=== PATIENT | female | born 1945 | race Caucasian/White ===

== ENCOUNTER 2020-06-14 11:45 | Emergency (ER) | payer OTHER, SELFPAY ==
[2020-06-14 13:06] LABS: Abs Immature Grans 0.02 10^3/uL (0.0-0.06); Absolute Basophil Count 0.01 10^3/uL (0.0-0.2); Absolute Eosinophil Count 0.06 10^3/uL (0.0-0.7); Absolute Lymphocyte Count 1.35 10^3/uL (1.2-3.4); Absolute Monocyte Count 0.43 10^3/uL (0.1-0.8); Absolute Neutrophil Count 3.43 10^3/uL (1.2-6.7); Basophils % 0.2; Eosinophils % 1.1; HCT 40.3 % (36.0-46.0); HGB 13.6 g/dL (11.2-15.7); Immature Grans % 0.4; Lymphocytes % 25.5; MCHC 33.7 % (32.0-36.0); MCV 91.8 fL (80-95); MPV 10.4 fL (8.0-11.0); Monocytes % 8.1; Neutrophils % 64.7; Nucleated RBC 0 %; Platelet Count 200 10^3/uL (130-400); RBC 4.39 10^6/uL (3.93-5.22); RDW 13.6 % (11.7-14.6); RDW-SD 46.2 fL
--- NOTE | 2020-06-14 13:10 | DI.CT_ITS ---
EXAM: CT HEAD CERVICAL SPINE WO CLINICAL HISTORY: FALL 5 DAYS AGO, LANDA, ON ELIQUIS. TECHNIQUE: Imaging Protocol: Axial computed tomography images with coronal and sagittal reformatted images were created and reviewed COMPARISON: No exams were available for comparison FINDINGS: CT Head: Ventricles and Extra axial spaces: Normal in size and morphology for the patient's age. Hemorrhage: None. Cerebral parenchyma: There are areas of decreased attenuation in the white matter most consistent wit h chronic microvascular ischemic change. No acute territorial infarct is present. Midline shift: None. Brainstem/Cerebellum: Normal. Calvarium: Normal. Visualized Paranasal sinuses/Mastoids: Clear. Soft Tissues: Unremarkable. CT Cervical Spine: Bones: No acute fracture or subluxation. Degenerative changes are seen throughout the cervical spine. Soft Tissues: Unremarkable. Lung Apices: Clear. IMPRESSION: 1. No acute intracranial process. 2. No acute fracture or subluxation in the cervical spine. 3. Results of this exam have been verbally communicated with provider. RADIATION DOSE DELIVERED: 1,602.64mGy.cm Total DLP DATA REPOSITORY: All CT scans at this facility are submitted to the National Radiology Data Registry (NRDR) Dose Index Registry (DIR) with the [employer] (ACR). RADIATION OPTIMIZATION: All CT scans at this facility use at least one of these dose optimization te chniques: automated exposure control; mA and/or kV adjustment per patient size (includes targeted exa ms where dose is matched to clinical indication); or iterative reconstruction.
[2020-06-14 13:21] LABS: Prothrombin Time 10.3 sec (9.3-11.0)
[2020-06-14 13:22] LABS: ALT 26 U/L (14-59); AST 17 U/L (15-37); Albumin 3.8 g/dL (3.4-5.0); Alkaline Phosphatase 73 U/L (46-116); Anion Gap 9.4 mmol/L (3-11); BUN 29 mg/dL (7-18); Bilirubin, Total 0.6 mg/dL (0.2-1.0); CO2 27.6 mmol/L (21.0-32.0); CREATININE 0.9 mg/dL (0.55-1.02); Calcium 9.1 mg/dL (8.5-10.1); Chloride 105 mmol/L (98-107); Glucose 104 mg/dL (74-106); Potassium 3.3 mmol/L (3.5-5.1); Sodium 142 mmol/L (136-145); Total Protein 6.6 g/dL (6.4-8.2)
[2020-06-14 13:34] LABS: Calculated LDL 132 mg/dL (<100); Cholesterol 231 mg/dL (<200); HDL Cholesterol 74 mg/dL (40-60); Triglyceride 127 mg/dL (<150)
--- NOTE | 2020-06-14 14:25 | W.ED.GENAD ---
Discharge Plan Disposition Patient Disposition: HOME Condition: Stable Discharge Details Clinical Impression: Hypokalemia, Headache, Fall due to ice or snow, Right hand paresthesia Primary Care Provider: Irena Salas ED Provider: Jose Suarez Home Meds and New Rx's Prescriptions: No Action valsartan-hydrochlorothiazide 320-12.5 mg tablet 1 tab PO DAILY RF: 0 ezetimibe 10 mg tablet 10 mg PO DAILY RF: 0 cinnamon bark 500 mg capsule 500 mg PO DAILY RF: 0 Actemra 162 mg/0.9 mL syringe 162 mg subcut QWEEK RF: 0 verapamil 240 mg capsule,ext rel. pellets 24 hr 240 mg PO DAILY RF: 0 Alphagan P 0.1 % drops 1 drp ophthalmic (eye) BID RF: 0 acetaminophen [Tylenol Arthritis Pain] 650 mg tablet extended release 650 mg PO Q12H RF: 0 sertraline 100 mg tablet 200 mg PO DAILY RF: 0 Eliquis 5 mg tablet 5 mg PO BID RF: 0 Discharge Instructions Instructions: Hypokalemia (ED), Paresthesia (ED), Fall Prevention (ED), General Headache (ED) Additional Instructions: A medication reconciliation was not performed today as system was malfunctioning. Please be sure to take your medications as prescribed. Please drink plenty of fluids to stay hydrated. Eat a couple bananas a day for the next few days. Please contact your primary care physician to arrange follow-up. Please follow-up with your specialist at [facility]. Call your doctors today to arrange timely follow-up. Return to the ER for any worsening or new concerning symptoms. Referrals: Irena Salas NP [Primary Care Provider] - Discharge Data Discharge Date/Time-TO BE ENTERED AT DEPARTURE: 06/14/20 14:55 Medical Decision Making Please refer to downtime paper document. HPI General Mode of arrival: ambulatory. Date/Time Provider Initiated Documentation: 06/14/20 14:15. Limitations to Documentation: no limitations. Information obtained by: patient. HPI Narrative: Please refer to downtime paper document. Related Data Home Medications Medication Instructions Recorded Confirmed acetaminophen 650 mg 650 mg PO Q12H 05/19/20 05/19/20 tablet,extended release apixaban 5 mg tablet 5 mg PO BID 05/19/20 05/19/20 brimonidine 0.1 % eye drops 1 drp OPHTHALMIC (EYE) BID ml 05/19/20 05/19/20 cinnamon bark 500 mg capsule 500 mg PO DAILY 05/19/20 05/19/20 ezetimibe 10 mg tablet 10 mg PO DAILY 05/19/20 05/19/20 sertraline 100 mg tablet 200 mg PO DAILY tab 05/19/20 05/19/20 tocilizumab 162 mg/0.9 mL 162 mg SUBCUT QWEEK 05/19/20 05/19/20 subcutaneous syringe valsartan 320 1 tab PO DAILY 05/19/20 05/19/20 mg-hydrochlorothiazide 12.5 mg tablet verapamil 240 mg 24 hr 240 mg PO DAILY 05/19/20 05/19/20 capsule,extended release Allergies Allergy/AdvReac Type Severity Reaction Status Date / Time adhesive tape Allergy Unknown Unverified 05/19/20 12:51 atorvastatin Allergy Unknown Unverified 05/19/20 12:51 colestipol [From Colestid] Allergy Unknown Unverified 05/19/20 12:51 diphenhydramine Allergy Unknown Unverified 05/19/20 12:51 [From Benadryl] paroxetine [From Paxil] Allergy Unknown Unverified 05/19/20 12:51 [facility] Medical History (Updated 06/16/20 @ 12:01 by Irena Salas NP) Deep vein thrombosis (DVT) of popliteal vein of right lower extremity (~12/2019) Duodenal ulcer Endometrial carcinoma Essential hypertension Generalized anxiety disorder Hiatal hernia Hyperlipidemia Major depressive disorder Obesity Obstructive sleep apnea Osteoarthritis Periodic limb movement disorder Prediabetes Pulmonary embolism (~12/2019) Temporal arteritis (~2018) Type 2 diabetes mellitus Surgical History History of colonoscopy (01/05/16) History of esophagogastroduodenoscopy (EGD) (02/18/19) History of hysterectomy (~04/08/94) History of left hip replacement (~2005) History of right hip replacement (~2003) Family History Mother , 87 Breast cancer Diabetes Heart disease Hypertension Father Depression Sister Heart disease Hypertension Sister , 20 Depression Brother , 30 Alcohol abuse Maternal Grandfather Stomach cancer Maternal Grandmother No problems noted. Paternal Grandfather No problems noted. Paternal Grandmother No problems noted. Social History Smoking/Tobacco Use Status: Former Tobacco Use tobacco type: cigarettes Second Hand Exposure: No Smoking risk assessment performed?: Yes Alcohol Intake: former Drug use: Daily Substance use type: marijuana and prescription drug Caregiver/Support person: No Household members: none Housing: apartment Communication Needs: Corrective Lenses Do you need help understanding health information?: Rarely Pets and animals: No Sexually active: No Do you think of yourself as: straight/heterosexual Current gender identity: female What is your relationship status?: How often do you talk on the phone with friends or family?: three or more times per week How often do you get together with friends or relatives?: once per week How often do you attend methodist or taoism services?: 1-3 times per year Do you belong to any clubs or organized social groups?: no Panel score (0-1 are the most socially isolated patients): 1 Lisa/Temple: Restorationism Seatbelt use: always Helmet use: No Drive intox or ride w/intox recycler forklift driver truck driver: No In current or past relationships, have you been: hurt, threatened and made to feel afraid Do you feel safe in your relationship?: Yes Victim of physical abuse: No Victim of emotional abuse: Yes Victim of sexual abuse: No Would you like helpful sources: No Course Lab/Test Results Lab/Test Results: Laboratory Tests Range/Units 06/14/20 06/14/20 06/14/20 12:37 12:37 12:37 WBC (4.4-10.8) 10^3/uL 5.30 RBC (3.93-5.22) 10^6/uL 4.39 Hgb (11.2-15.7) g/dL 13.6 Hct (36.0-46.0) % 40.3 MCV (80-95) fL 91.8 MCH (27.0-33.0) pg 31.0 MCHC (32.0-36.0) % 33.7 RDW (11.7-14.6) % 13.6 Plt Count (130-400) 10^3/uL 200 MPV (8.0-11.0) fL 10.4 Immature Gran % 0.4 Neutrophils % 64.7 Lymphocytes % 25.5 Monocytes % 8.1 Eosinophils % 1.1 Basophils % 0.2 Nucleated RBC % % 0 Absolute Neutrophils (1.2-6.7) 10^3/uL 3.43 Absolute Lymphocytes (1.2-3.4) 10^3/uL 1.35 Absolute Monocytes (0.1-0.8) 10^3/uL 0.43 Absolute Eosinophils (0.0-0.7) 10^3/uL 0.06 Absolute Basophils (0.0-0.2) 10^3/uL 0.01 PT (9.3-11.0) sec 10.3 INR (0.9-1.1) 1.0 Sodium Cancelled Potassium Cancelled Chloride Cancelled Carbon Dioxide Cancelled Anion Gap Cancelled BUN Cancelled Creatinine Cancelled Estimated GFR/1.73 m2 Cancelled Glucose Cancelled Hemoglobin A1c (<5.7) % Calcium Cancelled Total Bilirubin (0.2-1.0) mg/dL AST (15-37) U/L ALT (14-59) U/L Alkaline Phosphatase (46-116) U/L Total Protein (6.4-8.2) g/dL Albumin (3.4-5.0) g/dL Triglycerides (<150) mg/dL Total Cholesterol (<200) mg/dL LDL Cholesterol, Calc (<100) mg/dL HDL Cholesterol (40-60) mg/dL Patient ABO/Rh Antibody Screen Range/Units 06/14/20 06/14/20 06/14/20 12:37 12:37 12:37 WBC (4.4-10.8) 10^3/uL RBC (3.93-5.22) 10^6/uL Hgb (11.2-15.7) g/dL Hct (36.0-46.0) % MCV (80-95) fL MCH (27.0-33.0) pg MCHC (32.0-36.0) % RDW (11.7-14.6) % Plt Count (130-400) 10^3/uL MPV (8.0-11.0) fL Immature Gran % Neutrophils % Lymphocytes % Monocytes % Eosinophils % Basophils % Nucleated RBC % % Absolute Neutrophils (1.2-6.7) 10^3/uL Absolute Lymphocytes (1.2-3.4) 10^3/uL Absolute Monocytes (0.1-0.8) 10^3/uL Absolute Eosinophils (0.0-0.7) 10^3/uL Absolute Basophils (0.0-0.2) 10^3/uL PT (9.3-11.0) sec INR (0.9-1.1) Sodium Potassium Chloride Carbon Dioxide Anion Gap BUN Creatinine Estimated GFR/1.73 m2 Glucose Hemoglobin A1c (<5.7) % 6.0 H Calcium Total Bilirubin (0.2-1.0) mg/dL AST (15-37) U/L ALT (14-59) U/L Alkaline Phosphatase (46-116) U/L Total Protein (6.4-8.2) g/dL Albumin (3.4-5.0) g/dL Triglycerides (<150) mg/dL 127 Total Cholesterol (<200) mg/dL 231 H LDL Cholesterol, Calc (<100) mg/dL 132 H HDL Cholesterol (40-60) mg/dL 74 Patient ABO/Rh A Positive Antibody Screen Negative Range/Units 06/14/20 12:37 WBC (4.4-10.8) 10^3/uL RBC (3.93-5.22) 10^6/uL Hgb (11.2-15.7) g/dL Hct (36.0-46.0) % MCV (80-95) fL MCH (27.0-33.0) pg MCHC (32.0-36.0) % RDW (11.7-14.6) % Plt Count (130-400) 10^3/uL MPV (8.0-11.0) fL Immature Gran % Neutrophils % Lymphocytes % Monocytes % Eosinophils % Basophils % Nucleated RBC % % Absolute Neutrophils (1.2-6.7) 10^3/uL Absolute Lymphocytes (1.2-3.4) 10^3/uL Absolute Monocytes (0.1-0.8) 10^3/uL Absolute Eosinophils (0.0-0.7) 10^3/uL Absolute Basophils (0.0-0.2) 10^3/uL PT (9.3-11.0) sec INR (0.9-1.1) Sodium 142 Potassium 3.3 L Chloride 105 Carbon Dioxide 27.6 Anion Gap 9.4 BUN 29 H Creatinine 0.9 Estimated GFR/1.73 m2 >= 60.00 Glucose 104 Hemoglobin A1c (<5.7) % Calcium 9.1 Total Bilirubin (0.2-1.0) mg/dL 0.6 AST (15-37) U/L 17 ALT (14-59) U/L 26 Alkaline Phosphatase (46-116) U/L 73 Total Protein (6.4-8.2) g/dL 6.6 Albumin (3.4-5.0) g/dL 3.8 Triglycerides (<150) mg/dL Total Cholesterol (<200) mg/dL LDL Cholesterol, Calc (<100) mg/dL HDL Cholesterol (40-60) mg/dL Patient ABO/Rh Antibody Screen
[2020-06-14] MEDS: Acetaminophen 500 MG TAB 1000 MG PO (14:51)
== END 2020-06-14 14:55 | disposition home or self-care (01) ==
PROVIDERS: Emergency Provider Student in an Organized Health Care Education/Training Program; PCP Nurse Practitioner Family
DX: E87.6 Hypokalemia (principal); R51.9 Headache, unspecified; R20.2 Paresthesia of skin; W00.0XXA Fall on same level due to ice and snow, initial encounter; Z79.01 Long term (current) use of anticoagulants
CPT/HCPCS: 36415; 80048; 80053; 80061; 86850; 86900; 86901; 99284; 70450; 72125; 83036; 85025; 85610

== ENCOUNTER 2020-08-03 11:39 | Emergency (ER) | payer OTHER, SELFPAY ==
[2020-08-03 11:40] VITALS: BP 118/69; PULSE 74; RESP 16; TEMP 36.8; O2SAT 95
--- NOTE | 2020-08-03 11:45 | DI.US_ITS ---
EXAM: US LOWER EXTREMITY VENOUS RT CLINICAL HISTORY: Thigh numbness, calf pain, R/O DVT TECHNIQUE: Grayscale, color, and doppler imaging of the deep venous system of the right lower extrem ity was performed. COMPARISON: US outside institution US EXTREMITY LOWER VENOUS RT from 03/28/2020 FINDINGS: There is presently no evidence of intraluminal thrombus and there is normal compression and augmentat ion demonstrated within the common femoral vein, femoral vein, and popliteal vein. In the ipsilateral calf the interrogated veins also exhibit normal compression/ augmentation properti es. The ipsilateral saphenofemoral junction is patent. There is suggestion of a Grove cyst in the medial popliteal fossa measuring 2.3 x 1.1 x 2.3 cm. IMPRESSION: 1. No evidence of DVT in the right lower extremity. 2. Grove cyst in the medial popliteal fossa noted. DATA REPOSITORY:
--- NOTE | 2020-08-03 11:50 | ED.GENADUL_ITS ---
Discharge Plan Disposition Patient Disposition: HOME Condition: Stable Discharge Details Clinical Impression: Numbness of right anterior thigh Primary Care Provider: Irena Salas ED Provider: Prabha Edmondson Home Meds and New Rx's Prescriptions: Continued Actemra 162 mg/0.9 mL syringe 162 mg subcut QWEEK RF: 0 verapamil 240 mg capsule,ext rel. pellets 24 hr 240 mg PO DAILY RF: 0 sertraline 100 mg tablet 200 mg PO DAILY RF: 0 Eliquis 5 mg tablet 5 mg PO BID RF: 0 Medical Marijuana PO RF: 0 acetaminophen 325 mg Tablet 975 mg PO TID RF: 0 bisacodyl 5 mg Suppository 5 mg CA PRN PRNRF: 0 hydromorphone 2 mg Tablet 2 mg PO Q4H RF: 0 magnesium hydroxide 400 mg/5 mL Suspension 30 ml PO PRN PRNRF: 0 valsartan 320 mg Tablet 320 mg PO DAILY RF: 0 Fleet Enema 19-7 gram/118 mL Enema 118 ml CA PRN PRNRF: 0 calcium carbonate [Calcium 500] 500 mg calcium (1,250 mg) Tablet,Chewable 500 mg PO PRN PRNRF: 0 hydrochlorothiazide 25 mg Tablet 25 mg PO DAILY RF: 0 alum-mag hydroxide-simeth 200-200-20 mg/5 mL Suspension 15 ml PO PRN PRNRF: 0 senna-docusate sodium Tablet 2 tab PO DAILY RF: 0 ezetimibe 10 mg Tablet 10 mg PO DAILY RF: 0 brimonidine 0.1 % Drops 1 drp OPHTHALMIC (EYE) DAILY RF: 0 Discharge Instructions Instructions: Grove Cyst (ED), Paresthesia (ED) Additional Instructions: Follow up with primary care provider in 3-5 days. Return to ED or be seen sooner if any worsening or concerns. Increase oral fluids. Continue with physical therapy as tolerated. At this time there is no evidence of blood clot. They did find a 2 cm Grove's cyst in the popliteal fossa this can cause some discomfort behind her knee. This is improved with rest ice compression elevation. Referrals: Irena Salas, EMILIE [Primary Care Provider] - Medical Decision Making 75-year-old female presents to the ER via EMS with chief complaint of right anterior lateral thigh heaviness and numbness which she noticed this morning after eating breakfast. She also endorses some right calf tenderness. She does have a history of a DVT in that same extremity. [facility] post left shoulder replacement surgery on July 21. She denies any chest pain or shortness of breath. She is currently taking apixaban 10 mg daily. She has a past medical history of type 2 diabetes, temporal arteritis, osteoarthritis of bilateral shoulders, hyperlipidemia hypertension, DVT. US ordered to R/O DVT. 1307: Preliminary result received from rv service technician negative for DVT there is a small Grove's cyst noted in the popliteal space. EXAM: US LOWER EXTREMITY VENOUS RT CLINICAL HISTORY: Thigh numbness, calf pain, R/O DVT TECHNIQUE: Grayscale, color, and doppler imaging of the deep venous system of the right lower extremity was performed. COMPARISON: US outside institution US EXTREMITY LOWER VENOUS RT from 03/28/2020 FINDINGS: There is presently no evidence of intraluminal thrombus and there is normal compression and augmentation demonstrated within the common femoral vein, femoral vein, and popliteal vein. In the ipsilateral calf the interrogated veins also exhibit normal compression/ augmentation properties. The ipsilateral saphenofemoral junction is patent. There is suggestion of a Grove cyst in the medial popliteal fossa measuring 2.3 x 1.1 x 2.3 cm. IMPRESSION: 1. No evidence of DVT in the right lower extremity. 2. Grove cyst in the medial popliteal fossa noted. Discussed results with patient who verbalizes understanding. Her questions were answered to the best my ability. Discussed strict return instructions. [facility] contacted regarding arrangement for transportation back to their facility. HPI General Mode of arrival: ambulatory . Date/Time Provider Initiated Documentation: 08/03/20 11:39 . Limitations to Documentation: no limitations . Information obtained by: patient and EMS . HPI Narrative: 75-year-old female presents to the ER via EMS with chief complaint of right anterior lateral thigh heaviness and numbness which she noticed this morning after eating breakfast. She also endorses some right calf tenderness. She does have a history of a DVT in that same extremity. [facility] is [facility] post left shoulder replacement surgery on July 21. She denies any chest pain or shortness of breath. She is currently taking apixaban 10 mg daily. She has a past medical history of type 2 diabetes, temporal arteritis, osteoarthritis of bilateral shoulders, hyperlipidemia hypertension, DVT. Related Data Home Medications Medication Instructions Recorded Confirmed apixaban 5 mg tablet 5 mg PO BID 05/19/20 08/03/20 sertraline 100 mg tablet 200 mg PO DAILY tab 05/19/20 08/03/20 tocilizumab 162 mg/0.9 mL 162 mg SUBCUT QWEEK 05/19/20 08/03/20 subcutaneous syringe verapamil 240 mg 24 hr 240 mg PO DAILY 05/19/20 08/03/20 capsule,extended release Medical Marijuana PO 07/19/20 07/19/20 Fleet Enema 118 ml CA PRN PRN 08/03/20 08/03/20 acetaminophen 975 mg PO TID 08/03/20 08/03/20 alum-mag hydroxide-simeth 15 ml PO PRN PRN 08/03/20 08/03/20 bisacodyl 5 mg CA PRN PRN 08/03/20 08/03/20 brimonidine 1 drp OPHTHALMIC (EYE) DAILY 08/03/20 08/03/20 calcium carbonate [Calcium 500] 500 mg PO PRN PRN 08/03/20 ezetimibe 10 mg PO DAILY 08/03/20 08/03/20 hydrochlorothiazide 25 mg PO DAILY 08/03/20 08/03/20 hydromorphone 2 mg PO Q4H 08/03/20 08/03/20 magnesium hydroxide 30 ml PO PRN PRN 08/03/20 08/03/20 senna-docusate sodium 2 tab PO DAILY 08/03/20 08/03/20 valsartan 320 mg PO DAILY 08/03/20 08/03/20 Allergies Allergy/AdvReac Type Severity Reaction Status Date / Time adhesive tape Allergy Unknown Unverified 07/15/20 15:15 atorvastatin Allergy Unknown Unverified 07/15/20 15:15 colestipol [From Colestid] Allergy Unknown Unverified 07/15/20 15:15 diphenhydramine Allergy Unknown Unverified 07/15/20 15:15 [From Benadryl] paroxetine [From Paxil] Allergy Unknown Unverified 07/15/20 15:15 General Stated Complaint: GenMedical SALINA: 3 Review of Systems All systems reviewed & are unremarkable except as noted in HPI and below Musculoskeletal Musculoskeletal: Reports numbness (Right anterior lateral) and Reports other (Right calf pain) Neurologic Neurologic: Reports numbness (Right anterior lateral) [facility] Medical History Cholelithiasis Deep vein thrombosis (DVT) of popliteal vein of right lower extremity (~12/2019) Duodenal ulcer Endometrial carcinoma Essential hypertension Generalized anxiety disorder Hiatal hernia Hyperlipidemia Major depressive disorder Obesity Obstructive sleep apnea Osteoarthritis Osteoarthritis of shoulders, bilateral Periodic limb movement disorder Prediabetes Pulmonary embolism (~12/2019) Rectal bleed Temporal arteritis (~2018) Type 2 diabetes mellitus Surgical History History of colonoscopy (01/05/16) History of esophagogastroduodenoscopy (EGD) (02/18/19) History of hysterectomy (~04/08/94) History of left hip replacement (~2005) History of right hip replacement (~2003) Family History Mother , 87 Breast cancer Diabetes Heart disease Hypertension Father Depression Sister Heart disease Hypertension Sister , 20 Depression Brother , 30 Alcohol abuse Maternal Grandfather Stomach cancer Maternal Grandmother No problems noted. Paternal Grandfather No problems noted. Paternal Grandmother No problems noted. Social History Smoking/Tobacco Use Status: Former Tobacco Use tobacco type: cigarettes Second Hand Exposure: No Smoking risk assessment performed?: Yes Alcohol Intake: former Drug use: Occasionally Substance use type: marijuana and prescription drug Caregiver/Support person: No Household members: none Housing: apartment Communication Needs: Corrective Lenses Do you need help understanding health information?: Rarely Pets and animals: No Sexually active: No Do you think of yourself as: straight/heterosexual Current gender identity: female What is your relationship status?: How often do you talk on the phone with friends or family?: three or more times per week How often do you get together with friends or relatives?: once per week How often do you attend pentecostalism or islam services?: 1-3 times per year Do you belong to any clubs or organized social groups?: no Panel score (0-1 are the most socially isolated patients): 1 Lisa/Tenriism: Anabaptism Seatbelt use: always Helmet use: No Drive intox or ride w/intox catering driver: No In current or past relationships, have you been: hurt, threatened and made to feel afraid Do you feel safe in your relationship?: Yes Victim of physical abuse: No Victim of emotional abuse: Yes Victim of sexual abuse: No Would you like helpful sources: No Exam Narrative Exam Narrative: Constitutional: Alert and oriented x3. Appears stated age. Normal body habitus. Head: Normocephalic, no trauma. Eyes: Pupils PERRLA, Red reflex noted, EOM's intact. Eyelids symmetrical without lesions, discharge, or swelling. ENT: Bilateral TM's WNL, External ear normal to inspection, no mastoid TTP, swelling, or erythema, Nasal turbinates WNL, no nasal discharge. Normal dentition, Posterior pharynx WNL, no exudate. Chest: RRR, Normal S1, S2, distal pulses intact. Resp: Lungs clear to auscultation bilaterally, no wheezes, rales, or rhonchi. Musculoskeletal: 5/5 strength to all four extremities. Does have 1+ pitting edema noted to left lower extremity. Skin: No suspicious rashes or lesions. Capillary refill less than 2 sec. Neurologic: Cranial nerves II-XII intact. Alert and oriented x 3. DTR's intact. 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 Hematologic/Lymphatic: No ecchymosis, no lymphadenopathy. Course Vital Signs Vital signs: Vital Signs Temperature 36.8 C 08/03/20 11:40 Pulse 74 08/03/20 11:40 Respiratory Rate 16 08/03/20 11:40 Blood Pressure 118/69 08/03/20 11:40 Pulse Oximetry 95 08/03/20 11:40 Temperature 36.8 C 08/03/20 11:40 Temperature Source Skin 08/03/20 11:40 Pulse 74 08/03/20 11:40 Respiratory Rate 16 08/03/20 11:40 Blood Pressure 118/69 08/03/20 11:40 Blood Pressure Position Sitting 08/03/20 11:40 Pulse Oximetry 95 08/03/20 11:40 Oxygen Delivery Method Room Air 08/03/20 11:40 Oxygen Flow Rate 0 08/03/20 11:40
[2020-08-03 13:11] VITALS: BP 120/54; PULSE 71; RESP 18; TEMP 36.7; O2SAT 94
== END 2020-08-03 13:47 | disposition home or self-care (01) ==
LOC: ER 13:35
PROVIDERS: Emergency Provider Registered Nurse Emergency; PCP Nurse Practitioner Family
DX: R20.2 Paresthesia of skin (principal); M71.21 Synovial cyst of popliteal space [Baker], right knee
CPT/HCPCS: 99284; 93971; 99283

== ENCOUNTER 2021-07-21 10:27 | Emergency (ER) | payer OTHER, SELFPAY ==
[2021-07-21 10:31] VITALS: BP 177/73; PULSE 84; RESP 16; TEMP 37; O2SAT 99
--- NOTE | 2021-07-21 10:44 | DI.CT_ITS ---
Exam(s) CT HEAD CERV SPINE FACIAL WO EXAM: CT HEAD CERV SPINE FACIAL WO CLINICAL HISTORY: Closed Head Injury, R/O CVA, On Eliquis. TECHNIQUE: Imaging Protocol: Axial computed tomography images with coronal and sagittal reformatted images were created and reviewed COMPARISON: CT CT HEAD CERVICAL SPINE WO from 06/14/2020 FINDINGS: CT Head: Ventricles and Extra axial spaces: Normal in size and morphology for the patient's age. Hemorrhage: None. Cerebral parenchyma: No evidence of an acute territorial infarct. There are areas of decreased atten uation in the white matter consistent with small vessel ischemic disease. Midline shift: None. Brainstem/Cerebellum: Normal. Calvarium: Normal. Visualized Paranasal sinuses/Mastoids: Clear. Soft Tissues: Unremarkable. CT Face: Facial Bones: No definite fracture is noted in facial bones. Sinuses and Mastoids: Unremarkable. Globes, extraocular muscles, optic nerves and retrobulbar fat: Normal. Upper aerodigestive tract: Normal. Mandible and bilateral temporomandibular joints: Normal. Soft tissues: Normal. CT Cervical Spine: Bones: No acute fracture or subluxation. Degenerative changes are seen throughout the cervical spine. Soft Tissues: Unremarkable. Lung Apices: Clear. IMPRESSION: 1. No acute intracranial process. 2. No acute fracture or subluxation in the cervical spine. 3. No acute facial fracture. 4. Results of this exam have been verbally communicated with provider. RADIATION DOSE DELIVERED: 2,384.95mGy.cm Total DLP DATA REPOSITORY: All CT scans at this facility are submitted to the National Radiology Data Registry (NRDR) Dose Index Registry (DIR) with the [employer] (ACR). RADIATION OPTIMIZATION: All CT scans at this facility use at least one of these dose optimization te chniques: automated exposure control; mA and/or kV adjustment per patient size (includes targeted exa ms where dose is matched to clinical indication); or iterative reconstruction.
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
[2021-07-21] MEDS: Acetaminophen 500 MG TAB PO (12:56)
== END 2021-07-21 12:25 | disposition home or self-care (01) ==
PROVIDERS: Emergency Provider Registered Nurse Emergency
DX: S09.8XXA Other specified injuries of head, initial encounter (principal); M54.2 Cervicalgia; R51.9 Headache, unspecified; W01.0XXA Fall on same level from slipping, tripping and stumbling without subsequent striking against object, initial encounter; Z79.01 Long term (current) use of anticoagulants
CPT/HCPCS: 80053; 99284; 70450; 70486; 72125; 85025; 85610; 99283

== ENCOUNTER → 2021-09-18 09:53 | Outpatient (BNVA) | payer OTHER, SELFPAY | PROVIDERS: PCP Family Medicine; Referring Provider Family Medicine; Visit Provider Student in an Organized Health Care Education/Training Program | DX: M17.12 Unilateral primary osteoarthritis, left knee (principal) | CPT/HCPCS: 20610; 99214; J1040 ==

== ENCOUNTER → 2022-03-16 11:08 | Outpatient (BNVA) | payer OTHER, SELFPAY | PROVIDERS: PCP Family Medicine; Referring Provider Family Medicine; Visit Provider Internal Medicine Cardiovascular Disease | DX: Z01.810 Encounter for preprocedural cardiovascular examination (principal); I10 Essential (primary) hypertension; R06.09 Other forms of dyspnea; Z79.01 Long term (current) use of anticoagulants | CPT/HCPCS: 93005; 99203; 99214 ==

== ENCOUNTER 2022-03-16 11:24 | Outpatient (CLI) | payer OTHER, SELFPAY ==
--- NOTE | 2022-03-16 11:15 | RT.EKG_ITS ---
APPROVED REPORT Exam: Resting ECG Reason for Exam: HTN, HLD Patient Location: O HR:67 bpm ECG Measurements Heart Rate 67 AXIS FL 240 P 61 QRSd 110 QRS 10 QT 422 T 49 QTc 446 Conclusion Sinus rhythm...normal P axis, V-rate 50- 99 Prolonged FL interval...FL >220, V-rate 50- 90 Probable left atrial enlargement...P >50mS, <-0.10mV V1 Late transition No change compared to 2019
== END 2022-03-16 11:25 | disposition home or self-care (01) ==
LOC: DI.CARD 11:25
PROVIDERS: PCP Family Medicine; Visit Provider Internal Medicine Cardiovascular Disease
DX: I10 Essential (primary) hypertension (principal); E78.5 Hyperlipidemia, unspecified; R94.31 Abnormal electrocardiogram [ECG] [EKG]
CPT/HCPCS: 93010

== ENCOUNTER 2022-03-22 01:25 | Outpatient (CLI) | payer MEDICARE, OTHER, SELFPAY ==
--- NOTE | 2022-03-22 07:00 | DI.NM_ITS ---
APPROVED REPORT Exam: Pharmacologic Patient Location: Out-Patient Room/Bed: Stress Nurse: Yeny Myers RN Ordering Provider:SEBASTIEN RAMSEY, Contact Number: BMI: 32.91 Baseline Rhythm: Sinus Rhythm/ 1st degree heart block Indications: DYSPNEA ON EXERTION, PRE-OP FOR L KNEE REPLACEMENT Medical History Medical History: PE, DVT, Temporal arteritis, MUNDO, HLD, HTN, Prediabetes, Obesity, Anxiety Cardiac Medications: Apixaban, Verapamil, Ezitimibe, Valsartan/Hydrochlorothiaizide, Allergies: Adhesive tape, Colestipol, Diphenhydramine, Praoxetine, Atorvastatin Cardiac Risk Factors: HTN, Hyperlipidemia, FHX of CAD, Smoking (former), Obesity Previous Cardiac Procedures: None Pretest Chest Pain Characteristics: No chest pain Exercise History: Indeterminate Physical Disabilities: Knees Lung Sounds: Clear to auscultation Heart Sounds: Regular Stress Test Details Test: Pharmacologic stress testing performed using 0.4 mg of regadenoson per 5 mL given IV over 10 s econds. Reason for pharmacologic stress test: physical limitation. Nuclear Acquisition: Rest Tc-99m/Stress Tc-99m 1 day Rest Isotope: Tc-99m Sestamibi. Dose: 11.0 Date: 03/22/2022 Injection Time: 0930 Stress Isotope: Tc-99m Sestamibi. Dose: 36.0 Date: 03/22/2022 Injection Time: 1120 HR Resting HR Supine: 87 bpm Max Heart Rate (APMHR): 142.055447 bpm Target HR (85% APMHR): 120.936684 bpm Max HR Achieved: 103 bpm % of APMHR: 72.54 Recovery HR: 100 bpm BP Resting BP Supine: 168/76 mmHg Max BP: 168/76 mmHg Recovery BP: 168/62 mmHg ECG Resting ECG: Sinus Rhythm, 1st degree AV block Ectopy: None Stress ECG: Sinus Rhythm, 1st degree AV block ST Change: No significant ST segment changes noted Arrhythmia: None Recovery ECG: Sinus Rhythm, 1st degree AV block Recovery ST Change: No significant ST segment changes noted Recovery Arrhythmia: rare PVC Clinical Stress Symptoms: Dyspnea Rate Pressure Product: [id number] Stress ECG Conclusion 1. Resting electrocardiogram showed first degree AV block 2. Patient underwent testing with pharmacologic stress with regadenoson 3. Peak heart rate was 70 % of predicted for age 4. The elctrocardiographic portion of the test was nondiagnostic 5. See MPI report Stress Test Summary STAGE HR BP SpO2 Symptoms NOTES Supine 87 168/76 1 min post Lexiscan injection 89 148/68 Dyspnea. 3 min post Lexiscan injection 100 120/52 6 min post Lexiscan injection 100 138/62 Dyspnea resolved. MPI Conclusion Normal myocardial perfusion EF 78%, normal wall motion Radiologist Interpretation Radiologist Interpretation by: Vineet Larkin MD Interpretation Date/Time: 03/22/2022 16:54:03
[2022-03-22] MEDS: Regadenoson 0.4 MG/5 ML SYR IVP (11:12)
== END 2022-03-22 01:45 ==
PROVIDERS: PCP Family Medicine; Visit Provider Internal Medicine Cardiovascular Disease
DX: R06.09 Other forms of dyspnea (principal); Z01.810 Encounter for preprocedural cardiovascular examination
CPT/HCPCS: 78452; 93016; 93018; 93017; J2785

== ENCOUNTER 2022-04-17 01:49 | Outpatient (CLI) | payer MEDICARE, SELFPAY ==
--- NOTE | 2022-04-17 15:02 | DI.US_ITS ---
APPROVED REPORT EXAM: Comprehensive 2D, Doppler, and color-flow Echocardiogram Patient Location: Out-Patient Moving Worker: Renetta Landa RDCS ([place]) Indications: Exertional dyspnea, pre op Other Information Study Quality: Adequate. Technically limited study due to inability to position patient exam done sup ine. Conclusion Normal left ventricular wall thickness and chamber size. Estimated ejection fraction is 55 to 60%. Wall motion is normal Right ventricle appears normal in size Both atria are normal in size Trileaflet aortic valve with mild regurgitation Mild mitral annular calcification, mild mitral regurgitation Normal tricuspid valve with trace regurgitation. Estimated right ventricular systolic pressure is no rmal at 18 mmHg Dilated ascending aorta measuring 4. 1 3 cm Wall motion Left Ventricle The left ventricle is normal size. The left ventricular systolic function is normal. The left ventric ular ejection fraction is within the normal range. There is normal left ventricular wall thickness. T here is normal LV segmental wall motion. There is no ventricular septal defect visualized. LVEF is 58 %. Right Ventricle Right ventricle is grossly normal in size. Right ventricular systolic function is grossly normal. The RVSP is 17.8 mmHg. Atria The left atrium size is normal. The right atrium size is normal. The interatrial septum is intact wit h no evidence for an atrial septal defect. Aortic Valve The aortic valve is normal in structure. Aortic valve is trileaflet. There is no aortic valvular sten osis. Mild aortic regurgitation. Mitral Valve Mild mitral annular calcification. No evidence of mitral valve stenosis. Mild mitral regurgitation. Tricuspid Valve The tricuspid valve is normal in structure. There is no tricuspid valve stenosis. Trace tricuspid reg urgitation. Pulmonic Valve Pulmonic valve is not well visualized. There is no pulmonic valvular stenosis. There is no pulmonic v alvular regurgitation. Great Vessels The aortic root is normal in size. The ascending aorta is moderately dilated. Aortic arch is normal i n caliber. IVC is normal in size and collapses >50% with inspiration. Pericardium There is no pericardial effusion. 2D Dimensions IVSD d PLAX 0.90 cm F: 0.6-1.0 LV Vol A2C d MOD 95.4 mL LVPW d PLAX 0.91 cm F: 0.6 - 1.0 LV Vol A4C d MOD 114.9 mL LVID d PLAX 5.05 cm F: 3.8 - 5.2 LA vol/ BSA A2C s A-L 32.2 mL/m2 LVDs 3.15 cm F: 2.2 - 3.5 LA vol/ BSA A4C s A-L 29.1 mL/m2 Ao Root d 3.22 cm F: 2.7 - 3.3 LA Vol/ BSA Biplane s A-L 32.4 mL/m2 RA Area A4C 11.36 cm2 LA Area A4C s MOD 21.60 cm2 RA Vol/ BSA A4C s A-L 9.0 mL/m2 LA Area A2C s MOD 21.45 cm2 Ao Asc Diam d 4.13 cm F: 2.3 - 3.1 LV EF A4C MOD 57.6 % LV EF Teichholz 67.1 % LV EF A2C MOD 59.9 % LVEF (Chavez's) 57.54 % F: 54 - 74 LV EF Biplane MOD 57.5 % LV Volume 75.77 mL F: 46 - 106 SV 60.60 mL LV Volume Index 33.23 mL/m2 F: 29 - 61 SV Index 26.59 mL/m2 LV Vol Biplane MOD 105.3 mL FS 37.30 % M-Mode TAPSE 2.68 cm (M/F) >1.7 LV Diastology MV E' medial 0.068 (>0.07 m/s) E/A Ratio 0.8 LV E/e MED 12.65 (<14) MV E Vmax 0.87 (0.4-1.3 m/s) MV E' lateral 0.086 (>0.1 m/s) MV A Vmax 1.10 (0.4-1.3 m/s) LV E/e LAT 10.10 (<14) MV E/A Ratio 0.76 MV E/E' medial 12.68 MV E/E' lateral 10.14 Aortic Valve LVOT Area 3.59 cm2 AoV Area Vmax 2.70 cm2 LVOT Vmax 0.86 m/s AoV Area/ BSA (Vmax) 1.19 cm2/m2 LVOT Mean Jose. 0.56 m/s STARR Mean Jose. 2.44 cm2 LVOT Peak Grad 3.0 mmHg STARR Mean Jose. Index 1.07 cm2/m2 LVOT Mean Grad 1.5 mmHg AR DT 1286 msec LVOT VTI 0.199 m AR PHT 373 msec LVOT Diam s 2.10 cm AoV Vmax 1.14 m/s Velocity Ratio 0.75 AoV Mean Jose. 0.83 m/s AoV Peak Grad 5.2 mmHg LVOT SV 71.17 mL AoV Mean Grad 3.0 mmHg AoV VTI 0.274 m AoV Area VTI 2.59 cm2 AoV Area/ BSA (VTI) 1.14 cm/m2 Mitral Valve MV DT 249 (160-240 msec) MV PHT 72 msec MV Area PHT 3.05 cm2 MV VTI 0.305 m MV Area VTI 2.33 (4.0-6.0 cm2) Pulmonary Valve PV Vmax 0.86 (0.5-1.5 m/s) RVOT Peak Gr. 1.42 mmHg PV Peak Grad 2.9 mmHg RVOT Mean Gr. 0.80 mmHg PV Mean Grad 1.8 mmHg RVOT VTI 0.147 m PV VTI 0.196 m RVOT Vmax 0.60 m/s Tricuspid Valve TR Peak Grad 14.8 mmHg TR Vmax 1.93 m/s RA Pressure 3.00 mmHg RVSP (TR) 17.8 mmHg
== END 2022-04-17 02:09 ==
PROVIDERS: PCP Family Medicine; Visit Provider Internal Medicine Cardiovascular Disease
DX: R06.09 Other forms of dyspnea (principal); Z01.810 Encounter for preprocedural cardiovascular examination
CPT/HCPCS: 93306

== ENCOUNTER → 2022-04-24 11:07 | Outpatient (BNVA) | payer MEDICARE, SELFPAY | PROVIDERS: PCP Family Medicine; Referring Provider Family Medicine; Visit Provider Internal Medicine Cardiovascular Disease | DX: Z01.810 Encounter for preprocedural cardiovascular examination (principal); R06.09 Other forms of dyspnea; I10 Essential (primary) hypertension | CPT/HCPCS: 99442; 99213 ==

== ENCOUNTER → 2023-04-23 09:31 | Outpatient (BNVA) | payer MEDICARE, SELFPAY | PROVIDERS: PCP Family Medicine; Referring Provider Family Medicine; Visit Provider Internal Medicine Interventional Cardiology | DX: Z01.810 Encounter for preprocedural cardiovascular examination (principal); R06.09 Other forms of dyspnea; I10 Essential (primary) hypertension; I95.9 Hypotension, unspecified; I27.82 Chronic pulmonary embolism | CPT/HCPCS: 99213 ==

== ENCOUNTER → 2023-07-04 12:45 | Outpatient (BNVA) | payer MEDICARE, SELFPAY | PROVIDERS: PCP Family Medicine; Referring Provider Family Medicine; Visit Provider Student in an Organized Health Care Education/Training Program | DX: R06.09 Other forms of dyspnea (principal); G47.33 Obstructive sleep apnea (adult) (pediatric) | CPT/HCPCS: 99215 ==

== ENCOUNTER → 2023-10-02 12:42 | Outpatient (BNVA) | payer MEDICARE, SELFPAY | PROVIDERS: PCP Family Medicine; Referring Provider Family Medicine; Visit Provider Physician Assistant Surgical | DX: R06.09 Other forms of dyspnea (principal); G47.33 Obstructive sleep apnea (adult) (pediatric) | CPT/HCPCS: 99214 ==

== ENCOUNTER 2023-10-22 08:08 | Outpatient (CLI) | payer MEDICARE, SELFPAY ==
--- NOTE | 2023-10-22 08:00 | RT.EKG_ITS ---
APPROVED REPORT Exam: Resting ECG Reason for Exam: matta Patient Location: O HR:77 bpm ECG Measurements Heart Rate 77 AXIS MA 275 P 80 QRSd 90 QRS 50 QT 384 T 76 QTc 435 Conclusion Sinus rhythm...normal P axis, V-rate 50- 99 Prolonged MA interval...MA >220, V-rate 50- 90 Possible Anterior infarct, old...Q >40mS, abnormal ST-T, V2-V5
== END 2023-10-22 08:09 | disposition home or self-care (01) ==
LOC: DI.CARD 08:09
PROVIDERS: PCP Family Medicine; Visit Provider Internal Medicine Cardiovascular Disease
DX: R06.09 Other forms of dyspnea (principal); I10 Essential (primary) hypertension
CPT/HCPCS: 93010

== ENCOUNTER → 2023-10-22 10:58 | Outpatient (BNVA) | payer MEDICARE, SELFPAY | PROVIDERS: PCP Family Medicine; Referring Provider Family Medicine; Visit Provider Internal Medicine Cardiovascular Disease | DX: I10 Essential (primary) hypertension (principal); R94.31 Abnormal electrocardiogram [ECG] [EKG]; R06.09 Other forms of dyspnea | CPT/HCPCS: 93005; 99213 ==

== ENCOUNTER 2024-06-26 07:29 | Outpatient (CLI) | payer MEDICARE, SELFPAY ==
--- NOTE | 2024-06-26 07:15 | DI.US_ITS ---
APPROVED REPORT EXAM: Comprehensive 2D, Doppler, and color-flow Echocardiogram Patient Location: Out-Patient Glass Washer And Carrier: Chad Denton RDCS ([place]) Conclusion Borderline concentric left ventricular hypertrophy. Ejection fraction is 60%. Wall motion is normal . Diastolic function is normal for age Normal right ventricular size and function Left atrium is moderately dilated. Right atrial size is normal Trileaflet aortic valve with trace to mild regurgitation Mild mitral annular calcification . Mild mitral regurgitation Estimated right ventricular systolic pressure is 17 mmHg Ascending aorta measures 4.11 cm Wall motion Left Ventricle The left ventricle is normal size. The left ventricular systolic function is normal. The left ventric ular ejection fraction is within the normal range. Borderline concentric left ventricular hypertrophy . There is normal LV segmental wall motion. There is no ventricular septal defect visualized. LVEF is 60%. Right Ventricle The right ventricle is normal size. The right ventricular systolic function is normal. Atria Left atrium is moderately dilated. The right atrium size is normal. The interatrial septum is intact with no evidence for an atrial septal defect. Aortic Valve Aortic valve is thickened but has adequate excursion. Aortic valve is trileaflet. There is no aortic valvular stenosis. Trace to mild aortic regurgitation. Mitral Valve Mild mitral annular calcification. No evidence of mitral valve stenosis. mild mitral regurgitation. Tricuspid Valve The tricuspid valve is normal in structure. There is no tricuspid valve stenosis. Trace to mild tricu spid regurgitation. The RVSP is 16.8 mmHg. Pulmonic Valve The pulmonary valve is normal in structure. There is no pulmonic valvular stenosis. Trace to mild pul inna regurgitation. Great Vessels Aortic root is borderline dilated. The ascending aorta is moderately dilated. IVC is normal in size a nd collapses >50% with inspiration. Pericardium There is no pericardial effusion. 2D Dimensions IVSD d PLAX 1.19 cm F: 0.6-1.0 Ao Root d 3.38 cm F: 2.7 - 3.3 LVPW d PLAX 1.17 cm F: 0.6 - 1.0 Ao Asc Diam d 4.11 cm F: 2.3 - 3.1 LVID d PLAX 4.97 cm F: 3.8 - 5.2 LVDs 3.54 cm F: 2.2 - 3.5 LV EF Teichholz 55.0 % FS 28.66 % LV EDV (Teich) 116.5 mL LV ESV (Teich) 52.4 mL M-Mode TAPSE 2.38 cm (M/F) >1.7 Auto EF LV EDV A4C 79.4 mL LV EDV A2C 76.2 mL LV EDV BP 77.7 mL LV ESV A4C 31.8 mL LV ESV A2C 31.7 mL LV ESV BP 31.5 mL LVEF(%) A4C 59.9 % LVEF(%) A2C 58.3 % LVEF(%) BP 59.5 % LV SV A4C 47.5 ml LV SV A2C 44.4 ml LV SV BP 46.2 ml LV CO A4C 3.2 L/min LV CO A2C 3.0 L/min LV CO BP 3.1 L/min HR A4C 67.80 BPM HR A2C 68.19 BPM LV EDV Index (BP) LA Volume LA Length A4C 5.0 cm LA Length A2C 5.4 cm LA Area A4C s 19.19 cm2 LA Area A2C s 13.23 cm2 LA Vol A4C A-L 63.06 mL LA Vol A2C A-L 27.74 mL LA Vol Biplane A-L 43.5 mL LA Vol A4C MOD 59.4 mL LA Vol A2C MOD 25.6 mL LA Vol BP MOD 40.4 mL RA Volume RA Area A4C 7.2 cm2 RA ESV A4C (A-L) 11.6mL RA Vol/BSA A4C A-L RA Length A4C 3.8 cm RA ESV A4C (MOD) 11.1mL LV Diastology MV E' medial 0.070 (>0.07 m/s) MV E Vmax 0.90 (0.4-1.3 m/s) MV E/E' MED 12.90 (<14) MV A Vmax 1.25 (0.4-1.3 m/s) MV E' lateral 0.065 (>0.1 m/s) E/A Ratio 0.7 MV E/E' LAT 13.79 (<14) MV E' Average 0.067 m/s MV E/E'(average) 13.33 Aortic Valve AoV Vmax 1.33 m/s LVOT Vmax 0.81 m/s AoV Peak Grad 33.4 mmHg LVOT Peak Grad 2.6 mmHg AoV Area (Vmax) 2.15 cm2 LVOT VTI 0.213 m AoV VTI 0.308 m LVOT Mean Grad 1.6 mmHg AoV Mean Jose. 0.94 m/s LVOT SV 75.38 mL AoV Mean Grad 4.0 mmHg LVOT Diam s 2.10 cm AoV Area (VTI) 2.45 cm2 AV Regurg Peak Gr. 7.06 mmHg Velocity Ratio 0.61 AR Decel [place] 1.8m/sec2 AR DT 2182 msec AR PHT 633 msec AR Vmax 3.86 m/s Pulmonary Valve PV Vmax 1.04 (0.5-1.5 m/s) RVOT Vmax 0.77 m/s PV Peak Grad 4.4 mmHg RVOT Peak Gr. 2.4 mmHg PV Mean Jose 0.72 m/s RVOT VTI 0.168 m PV Mean Grad 2.4 mmHg RVOT Mean Gr. 1.5 mmHg Tricuspid Valve RA Pressure 3.00 mmHg TR Vmax 1.86 m/s TV S' 0.19 m/s TR Peak Grad 13.8 mmHg RVSP (TR) 16.8 mmHg
== END 2024-06-26 07:49 ==
LOC: DI 07:30
PROVIDERS: PCP Family Medicine; Visit Provider Internal Medicine Cardiovascular Disease
DX: R06.09 Other forms of dyspnea (principal); I08.0 Rheumatic disorders of both mitral and aortic valves
CPT/HCPCS: 93306

== ENCOUNTER → 2024-08-21 13:42 | Outpatient (BNVA) | payer MEDICARE, SELFPAY | PROVIDERS: PCP Family Medicine; Referring Provider Family Medicine; Visit Provider Internal Medicine Cardiovascular Disease | DX: R06.09 Other forms of dyspnea (principal); I10 Essential (primary) hypertension | CPT/HCPCS: 99213 ==

== ENCOUNTER 2024-09-12 09:52 | Emergency (ER) | payer MEDICARE, SELFPAY ==
[2024-09-12 09:57] VITALS: BP 189/78; PULSE 81; RESP 18; TEMP 37.1; O2SAT 99
--- NOTE | 2024-09-12 10:15 | DI.RAD_ITS ---
Exam(s) XR KNEE RT 3V AP,LAT,ULISES EXAM: XR KNEE RT 3V AP,LAT,ULISES CLINICAL HISTORY: R knee pain/swelling. TECHNIQUE: 2D digital imaging was performed of the right knee. Four views obtained. AP, lateral and PA tunnel views were obtained. COMPARISON: CR XR KNEE 3V RT from 12/25/2019 FINDINGS: BONES: No acute fracture is present. No bony destructive lesion is seen. JOINTS: Marked degenerative changes are seen in the right knee involving all 3 joint compartments bhavik racterized by joint space narrowing and osteophytes. There is a small joint effusion. SOFT TISSUE: Normal. IMPRESSION: 1. No acute fracture or dislocation. 2. Marked degenerative changes of the knee. DATA REPOSITORY: RADIATION DOSE DELIVERED:
[2024-09-12] MEDS: Acetaminophen 325 MG TAB 650 MG PO (11:03)
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
[2024-09-12 12:21] VITALS: RESP 16
[2024-09-12 12:22] VITALS: BP 155/74; PULSE 72; RESP 14; TEMP 36.6; O2SAT 100
== END 2024-09-12 12:22 | disposition home or self-care (01) ==
LOC: ER 10:11
PROVIDERS: Emergency Provider Physician Assistant; PCP Family Medicine
DX: M17.11 Unilateral primary osteoarthritis, right knee (principal); M25.461 Effusion, right knee; E11.9 Type 2 diabetes mellitus without complications; I10 Essential (primary) hypertension; E78.5 Hyperlipidemia, unspecified; Z79.01 Long term (current) use of anticoagulants; Z87.891 Personal history of nicotine dependence
CPT/HCPCS: 73562; 99283